=== PATIENT | female | born 1930 | race Caucasian/White ===

== ENCOUNTER 2017-05-01 11:33 | Outpatient (CLI) | payer OTHER ==
[~2017-05-01 11:33] MED LIST: ALDACTONE50 MG PO; AMBIEN5 MG PO; BENZONATATE100 MG PO; BISCOLAX10 MG PR; CLOTRIMAZOLE10 MG PO; COUMADIN1 MG PO; FERROUS SULFAT325 M1 PO; KLOR-CON20 MEQ PO; METOPROLOL SUCC25 MG PO; MIRALAX3350 N1 PO; NORCO1 TA1 PO; ONDANSETRON ODT4 MG PO; PERCOCET1 TA2 PO; PREMARIN0.45 MG PO; PREVACID30 MG PO; PROAIR HFA IN; RESTASIS0.05 % OP; SPIRIVA18 MCG INH; TORSEMIDE20 MG PO; TRIAMCINOLONE0.025 % TOP; VOLTAREN1 % TOP; WARFARIN SODIUM5 MG PO
--- NOTE | 2017-05-01 14:30 | DIAGNOSTIC IMAGING REPORT ---
PROCEDURE: XR BARIUM ENEMA WITHOUT AIR INDICATION: POSITIVE BLOOD IN STOOL TECHNIQUE: Single contrast study. Fluoroscopy time, 6.2-minute minutes; 6193.67 mGy. COMPARISON: Compared CT abdomen on 09/16/2015. 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 There is a moderate levoscoliosis and marked degenerative changes of the lumbar spine. Status post left proximal femoral prosthesis. There is a tortuous and redundant sigmoid colon with tortuous hepatic flexure. There is a small amount of residual stool in the cecum. No evidence of constricting or polypoid lesion. IMPRESSION: 1. Negative barium enema. 2. Findings discussed with the patient.
--- NOTE | 2017-05-01 14:30 | DIAGNOSTIC IMAGING REPORT ---
PROCEDURE: XR BARIUM ENEMA WITHOUT AIR INDICATION: POSITIVE BLOOD IN STOOL TECHNIQUE: Single contrast study. Fluoroscopy time, 6.2-minute minutes; 6193.67 mGy. COMPARISON: Compared CT abdomen on 09/16/2015. 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 There is a moderate levoscoliosis and marked degenerative changes of the lumbar spine. Status post left proximal femoral prosthesis. There is a tortuous and redundant sigmoid colon with tortuous hepatic flexure. There is a small amount of residual stool in the cecum. No evidence of constricting or polypoid lesion. IMPRESSION: 1. Negative barium enema. 2. Findings discussed with the patient.
== END 2017-05-01 23:00 ==
LOC: XR SRH 11:33
DX: K92.1 Melena (principal); Q43.8 Other specified congenital malformations of intestine